=== PATIENT | male | born 1940 | race Hispanic/Latino ===

== ENCOUNTER 2016-12-27 12:51 | Outpatient (CLI) | payer MEDICARE, OTHER ==
--- NOTE | 2016-12-27 15:08 | XRay Report ---
BILATERAL HIPS WITH PELVIS, 3 VIEWS: History: Hip pain. Findings: Bone mineralization is borderline. There is no evidence for fracture, dislocation or pelvic diastasis. No advanced joint pathology is detected. The soft tissues are unremarkable. Impression: Unremarkable exam.
--- NOTE | 2016-12-27 15:33 | XRay Report ---
LUMBAR SPINE RADIOGRAPHS: INDICATION: Lumbar pain with radiation down both legs. COMPARISON: None similar. FINDINGS: AP and lateral lumbar spine radiographs demonstrate mild lumbar levoscoliosis apex about L4-L5. Mild L1 superior endplate depression and slight irregular sclerosis, exact age indeterminate. Osteopenia/osteoporosis. Normal remainder vertebral body stature with slight degenerative spurring. Lower lumbar facet arthropathy may also be present. Mild multilevel lumbar disc degeneration. Moderate non-aneurysmal abdominal aortic atherosclerosis. Nonobstructive bowel gas pattern. Intact SI joints. Few pelvic phleboliths. CONCLUSION: 1. Mild L1 superior endplate depression, exact age indeterminate, though not excluded for an acute compression fracture in an appropriate setting. Please correlate clinically. Comparison with similar prior imaging would also be very helpful, if available. 2. Various other degenerative changes, as above. Thank you for the opportunity to participate in this patient's care.
== END 2016-12-27 12:52 | disposition home or self-care (01) ==
LOC: SPVIMAG 12:51
PROVIDERS: ATTEND Internal Medicine
DX: M51.36 Other intervertebral disc degeneration, lumbar region (principal); M47.897 Other spondylosis, lumbosacral region; M12.88 Other specific arthropathies, not elsewhere classified, other specified site; M25.551 Pain in right hip; M25.552 Pain in left hip; I87.8 Other specified disorders of veins; I70.0 Atherosclerosis of aorta
CPT/HCPCS: 72100; 73521